=== PATIENT | male | born 1970 | race Caucasian/White ===

== ENCOUNTER 2017-09-08 23:41 | Emergency (ER) | payer MEDICAID ==
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
[2017-09-09 00:02] VITALS: O2SAT 100
--- NOTE | 2017-09-09 00:10 | RAD ---
EXAM: Chest,1 View CLINICAL INDICATION: 47-year-old male with shortness of breath. TECHNIQUE: Single view, AP portable chest was obtained. COMPARISON: None. FINDINGS: Examination findings are limited secondary to patient rotation and positioning. Mediastinal cardiac contour appears to be within normal limits, within the limitations of patient rotation and positioning. Tracheostomy tube terminates at the level of the thoracic inlet. The lungs are grossly clear without discrete focal opacity, pleural effusion or pneumothorax. The visualized bones reveal severe dextrorotoscoliosis of the thoracic spine with stabilization hardware. IMPRESSION: No acute cardiopulmonary abnormalities. Electronically signed by: Li Ro MD 09/09/2017 12:08 AM WOODS SUPERINTENDENT Workstation: [id number]
[2017-09-09 03:12] VITALS: BP 127/87; TEMP 98.2
== END 2017-09-09 03:11 ==
LOC: ER 23:41
DX: J96.10 Chronic respiratory failure, unspecified whether with hypoxia or hypercapnia (principal); J95.03 Malfunction of tracheostomy stoma; Z87.820 Personal history of traumatic brain injury; Z93.1 Gastrostomy status

== ENCOUNTER 2017-09-26 08:53 | Emergency (ER) | payer MEDICAID ==
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
[2017-09-26] MEDS ORDERED: LORazepam 0.5 MG TAB PO ONE (09:39)
--- NOTE | 2017-09-26 09:47 | RAD ---
EXAM: Chest,1 View CLINICAL INDICATION: 47-year-old male with shortness of breath. TECHNIQUE: Single view, AP portable chest was obtained. COMPARISON: September 08, 2017 FINDINGS: Examination findings are limited secondary to patient rotation and positioning. Mediastinal cardiac contour appears to be within normal limits, within the limitations of patient rotation and positioning. Tracheostomy tube terminates at the level of the thoracic inlet. The lungs are grossly clear without discrete focal opacity, pleural effusion or pneumothorax. The visualized bones reveal severe dextrorotoscoliosis of the thoracic spine with stabilization hardware. IMPRESSION: No acute cardiopulmonary abnormalities. Electronically signed by: Jesus Mann MD 09/26/2017 9:45 AM SAFETY SUPERVISOR
[2017-09-26 12:18] VITALS: O2SAT 100
[2017-09-26 12:28] VITALS: BP 138/90; TEMP 98.1
== END 2017-09-26 12:40 ==
LOC: ER 08:53
DX: J95.03 Malfunction of tracheostomy stoma (principal); J96.12 Chronic respiratory failure with hypercapnia; Z99.11 Dependence on respirator [ventilator] status; I10 Essential (primary) hypertension; Z79.899 Other long term (current) drug therapy
CPT/HCPCS: 36415; 71010; 80053; 85025; 85379; 94002; J2060

== ENCOUNTER 2017-10-30 01:23 | Emergency (ER) | payer MEDICAID ==
--- NOTE | 2017-10-30 02:27 | ED.PDOC ---
History of Present Illness - General Chief Complaint: Respiratory Problem Stated Complaint: difficulty breathing Time Seen by Provider: 10/30/17 01:55 Source: RN notes reviewed, EMS notes reviewed Exam Limitations: physical impairment, other - ventilator dependent - History of Present Illness Initial Comments: Melida Iraheta 47 y/o ventilator dependent due to anoxic brain damage resident at [facility] brought by ems with elevated heart rate ,low grade fever and etco2 of 150 at [facility] .Was started on Amoxicillin for possible lung infection by his Md at [facility]. Timing/Duration: 24 hours, changing over time, intermittent Severity: moderate Improving Factors: nothing Worsening Factors: nothing Associated Symptoms: other - see hpi Allergies/Adverse Reactions: Allergies NO KNOWN ALLERGY Allergy (Verified 09/26/17 09:04) Home Medications: Ambulatory Orders Acetaminophen [Tylenol] 650 mg PO Q6H PRN 09/26/17 Atropine Drops 2 drop SL Q6H PRN 09/26/17 Balsam [place] Oil [Venelex] 1 applic TOP DAILY 09/26/17 Bisacodyl [The Magic Bullet] 10 mg [place] DAILY PRN 09/26/17 Budesonide (Inhalation) [Budesonide] 0.5 mg INH BID 09/26/17 Chlorhexidine Mouth Rinse [Peridex] 15 ml MT BID PRN 09/26/17 Fluticasone Propionate (Nasal) [Flonase Allergy Relief] 50 mcg BNAS DAILY Ipratropium [place] Nebs [Atrovent NEBS] 0.5 mg INH Q6H 09/26/17 Levalbuterol Nebs [Xopenex NEBS] 3 ml INH Q4H PRN 09/26/17 Levalbuterol Nebs [Xopenex NEBS] 3 ml INH Q6H 09/26/17 Lorazepam [Ativan] 0.5 mg PO Q8H PRN 09/26/17 Pantoprazole Suspension [Protonix] 40 mg PO DAILY 09/26/17 RX: Amantadine HCl 100 mg PO BID 09/26/17 RX: Baclofen 10 mg PO DAILY 09/26/17 RX: Loratadine 10 mg PO DAILY 09/26/17 RX: Methylphenidate HCl 10 mg PO BID 09/26/17 RX: Promethazine HCl 25 mg PO Q6H PRN 09/26/17 RX: Trazodone HCl 50 mg PO BEDTIME 09/26/17 levETIRAcetam SUSPENSION [Keppra] 500 mg PO BID 09/26/17 Review of Systems - Review of Systems Unable to Obtain Due To: condition, clinical condition, other - ventilator dependent;non verbal,tracheostomy,vegetative state Past Medical History (General) - Patient Medical History Hx Seizures: No Hx Stroke: No Hx Dementia: No Hx Asthma: No Hx of COPD: No Hx Cardiac Disorders: No Hx Congestive Heart Failure: No Hx Pacemaker: No Hx Hypertension: Yes Hx Thyroid Disease: No Hx Diabetes: No Hx Gastroesophageal Reflux: No Hx Renal Disease: No Hx Cancer: No Hx of HIV: No Hx Hepatitis C: No Hx MRSA: No Surgical History: other - peg,tracheostomy,metal rods-thoracic spine - Vaccination History Hx Tetanus, Diphtheria Vaccination: Yes Hx Influenza Vaccination: - unknown Hx Pneumococcal Vaccination: - unknown - Social History Hx Tobacco Use: No - Activities of Daily Living Jail/Assisted Living (if applicable):: [facility] Family Medical History - Family History Mother Family History: Unknown Living Status: Unknown Physical Exam - Physical Exam General Appearance: Other - vegetative state Ears, Nose, Throat: normal pharynx, other - moist oral mucosa Neck: other - contracture deformity Respiratory: other - coarse breath sounds,on vent Cardiovascular/Chest: normal peripheral pulses, regular rate, rhythm, no gallop , no murmur Peripheral Pulses: radial,right: 2+, radial,left: 2+ Gastrointestinal/Abdominal: normal bowel sounds, soft, no organomegaly Extremity: other - contracture deformities upper and lower extremities Neurologic: other - persistent vegetative state with occasional roliing of both eyeballs Skin Exam: normal color, warm/dry Progress - Progress Progress: 10/30/17 03:31 Vital Signs - 24 hr 10/30/17 10/30/17 10/30/17 01:45 01:57 02:00 Temperature 99.8 F H Pulse Rate [ 71 left] Respiratory 16 18 18 Rate Respiratory 18 Rate [Volume Control Data] Blood Pressure 92/63 [right] O2 Sat by Pulse 100 99 Oximetry 10/30/17 10/30/17 02:33 03:21 Temperature Pulse Rate [ 115 H 72 left] Respiratory 18 18 Rate Respiratory Rate [Volume Control Data] Blood Pressure 97/65 160/96 [right] O2 Sat by Pulse 99 99 Oximetry - Results/Orders Results/Orders: Laboratory Tests 10/30/17 10/30/17 10/30/17 01:34 01:50 01:50 WBC 11.3 H RBC 4.85 Hgb 13.4 L Hct 41.9 L MCV 86.5 MCH 27.6 MCHC 31.8 L RDW 14.9 H Plt Count 212 MPV 9.8 Absolute Neuts (auto) 10.00 H Absolute Lymphs (auto) 0.40 L Absolute Monos (auto) 0.90 H Absolute Eos (auto) 0.00 Absolute Basos (auto) 0.00 Neutrophils % 88.7 H Lymphocytes % 3.1 L Monocytes % 7.8 Eosinophils % 0.3 L Basophils % 0.1 pCO2 59 H pO2 179 H* HCO3 42.4 ABG pH 7.470 H ABG O2 Saturation 100.5 H ABG Base Excess 16.0 ABG Deoxyhemoglobin -0.5 L Oxyhemoglobin % 98.9 H Carboxyhemoglobin % 0.9 Methemoglobin % Sat 0.7 Calc Total Hemoglobin 12.0 L Sodium 137 Potassium 5.4 H Chloride 86 L Carbon Dioxide 42 H Anion Gap 14.4 BUN 12 Creatinine 0.64 BUN/Creatinine Ratio 18.8 Random Glucose 195 H Serum Osmolality 278.9 Lactic Acid Calcium 9.8 Total Bilirubin 0.3 Direct Bilirubin 0.1 AST 18 ALT 29 Alkaline Phosphatase 107 Troponin I Serum Total Protein 8.8 H Albumin 3.6 Globulin 5.2 H Albumin/Globulin Ratio 0.7 L Urine Color Urine Appearance Urine pH Ur Specific [place] Urine Protein Urine Glucose (UA) Urine Ketones Urine Blood Urine Nitrite Urine Bilirubin Urine Urobilinogen Ur Leukocyte Esterase Urine RBC Urine WBC Ur Epithelial Cells Urine Bacteria 10/30/17 10/30/17 10/30/17 01:50 01:56 02:30 WBC RBC Hgb Hct MCV MCH MCHC RDW Plt Count MPV Absolute Neuts (auto) Absolute Lymphs (auto) Absolute Monos (auto) Absolute Eos (auto) Absolute Basos (auto) Neutrophils % Lymphocytes % Monocytes % Eosinophils % Basophils % pCO2 pO2 HCO3 ABG pH ABG O2 Saturation ABG Base Excess ABG Deoxyhemoglobin Oxyhemoglobin % Carboxyhemoglobin % Methemoglobin % Sat Calc Total Hemoglobin Sodium Potassium Chloride Carbon Dioxide Anion Gap BUN Creatinine BUN/Creatinine Ratio Random Glucose Serum Osmolality Lactic Acid 2.3 H Calcium Total Bilirubin Direct Bilirubin AST ALT Alkaline Phosphatase Troponin I < 0.02 Serum Total Protein Albumin Globulin Albumin/Globulin Ratio Urine Color Yellow Urine Appearance Sl cloudy Urine pH 5.5 Ur Specific [place] >= 1.030 Urine Protein 100 H Urine Glucose (UA) Negative Urine Ketones Negative Urine Blood Moderate H Urine Nitrite Negative Urine Bilirubin Negative Urine Urobilinogen 0.2 Ur Leukocyte Esterase Negative Urine RBC 5-10 H Urine WBC 1-3 Ur Epithelial Cells 0 Urine Bacteria 2+ H Patients slight elevation of his lactic acid is from chronic respiratory failure with continued ventilatory support,also he is on feeding tube. Work up that were done did not show acute infectious processes-CBC,URINALYSIS,Chest X- ray and abdominal CT.He was intermittently suctioned on his tracheostomy tubes to clear up thickened secretion by the respiratory therapist. - EKG/XRAY/CT EKG: Sinus, Tachy Comments: HR-118;early repolarization XRAY: chest - no acute abnormalities CT Ordered: Yes - abd/p-no acute abnormalities ,non obstructing kidney stone bilateral Departure - Departure Clinical Impression: Abdominal distention, Ventilator dependent, Anoxic brain damage, not elsewhere classified Respiratory failure Qualifiers: Chronicity: acute on chronic Respiratory failure complication: unspecified whether with hypoxia or hypercapnia Qualified Code(s): J96.20 - Acute and chronic respiratory failure, unspecified whether with hypoxia or hypercapnia Time of Disposition: 05:39 Disposition: Discharge to SNF Condition: Poor Departure Forms: Patient Portal Self Enrollment Referrals: DAYANA SANTANA [Primary Care Provider] - 1-2 Weeks Home Medications: Ambulatory Orders Acetaminophen [Tylenol] 650 mg PO Q6H PRN 09/26/17 Atropine Drops 2 drop SL Q6H PRN 09/26/17 Balsam [place] Oil [Venelex] 1 applic TOP DAILY 09/26/17 Bisacodyl [The Magic Bullet] 10 mg [place] DAILY PRN 09/26/17 Budesonide (Inhalation) [Budesonide] 0.5 mg INH BID 09/26/17 Chlorhexidine Mouth Rinse [Peridex] 15 ml [place] BID PRN 09/26/17 Fluticasone Propionate (Nasal) [Flonase Allergy Relief] 50 mcg BNAS DAILY Ipratropium [place] Nebs [Atrovent NEBS] 0.5 mg INH Q6H 09/26/17 Levalbuterol Nebs [Xopenex NEBS] 3 ml INH Q4H PRN 09/26/17 Levalbuterol Nebs [Xopenex NEBS] 3 ml INH Q6H 09/26/17 Lorazepam [Ativan] 0.5 mg PO Q8H PRN 09/26/17 Pantoprazole Suspension [Protonix] 40 mg PO DAILY 09/26/17 RX: Amantadine HCl 100 mg PO BID 09/26/17 RX: Baclofen 10 mg PO DAILY 09/26/17 RX: Loratadine 10 mg PO DAILY 09/26/17 RX: Methylphenidate HCl 10 mg PO BID 09/26/17 RX: Promethazine HCl 25 mg PO Q6H PRN 09/26/17 RX: Trazodone HCl 50 mg PO BEDTIME 09/26/17 levETIRAcetam SUSPENSION [Keppra] 500 mg PO BID 09/26/17 Additional Instructions: Continue with all current medications;Follow up with primary Md in am
--- NOTE | 2017-10-30 02:41 | RAD ---
Procedure: XR CHEST 1 VIEW Exam Date: 10/30/2017 Ordering Provider: Pankaj Gramajo Clinical Indication: difficulty breathing Comparison: 09/26/2017 Findings: Tracheostomy tube in appropriate position. Cardiomediastinal silhouette: Cardiac size is magnified by technique. Pulmonary vasculature : Unremarkable Aortic contour: Unremarkable Focal lung consolidation: None Pleural effusion: None Pneumothorax: None Bones and soft tissues: Nonacute. Postsurgical changes in the scoliotic spine. Impression: 1. No acute abnormalities in the chest. Electronically signed by: Jerry Reed MD 10/30/2017 2:41 AM VENEER SORTER
[2017-10-30] MEDS ORDERED: SODIUM CHLORIDE 0.9% 1000ML 1,000 ML IVS ONE (03:03)
[2017-10-30] MEDS ORDERED: SOD POLYSTYRENE SULFONATE 15 GM/60 ML BTTL GT ONE (03:35)
[2017-10-30] MEDS ORDERED: ONDANSETRON INJ 4 MG/2 ML VIAL ONE (03:53)
[2017-10-30 04:11] VITALS: O2SAT 100
[2017-10-30] MEDS ORDERED: ONDANSETRON INJ 4 MG/2 ML VIAL IV ONE (04:14)
--- NOTE | 2017-10-30 05:10 | CT ---
EXAM DESCRIPTION: CT ABDOMEN AND PELVIS WITHOUT CONTRAST CLINICAL HISTORY: abdominal distention COMPARISON: None Available. TECHNIQUE: CT of the abdomen and pelvis without IV contrast. FINDINGS: Abdomen: The liver has normal size and density. No calcified gallstones. The spleen, pancreas, and adrenal glands demonstrate no definite abnormalities by noncontrast CT criteria. Bilateral nonobstructing renal calculi, the largest on the right measuring 3-4 mm. No definite hydronephrosis or obstructing calculus. The aorta and IVC have normal caliber and position. No free intraperitoneal air. G-tube in place. Pelvis: Prostate is not enlarged. Urinary bladder is unremarkable. No free pelvic fluid or lymphadenopathy. No dilated loops of large or small bowel. Normal appendix. Mild bibasilar atelectasis. Postoperative change of the thoracic spine. DLP: 638.52 mGy-cm IMPRESSION: 1. No acute inflammatory or obstructive abnormality identified. 2. Punctate nonobstructing bilateral renal calculi. This exam was performed according to our departmental dose-optimization program, which includes automated exposure control, adjustment of the mA and/or kV according to patient size and/or use of iterative reconstruction technique. Electronically signed by: Mohan Holloway 10/30/2017 5:09 AM CREDIT RATING CHECKER
[2017-10-30 06:16] VITALS: BP 120/71; TEMP 100.2
== END 2017-10-30 06:16 ==
LOC: ER 01:23
DX: J96.20 Acute and chronic respiratory failure, unspecified whether with hypoxia or hypercapnia (principal); R14.0 Abdominal distension (gaseous); G93.1 Anoxic brain damage, not elsewhere classified; Z99.11 Dependence on respirator [ventilator] status; Z93.1 Gastrostomy status; R79.89 Other specified abnormal findings of blood chemistry; I10 Essential (primary) hypertension; Z79.899 Other long term (current) drug therapy
CPT/HCPCS: 36415; 36600; 71010; 74176; 80053; 81001; 82248; 82803; 82805; 83605; 84484; 85025; 87502; 93005; 94002; 94003; 94760; 94770; J2405; J7030

== ENCOUNTER 2017-12-27 13:16 | Emergency (ER) | payer MEDICAID ==
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
--- NOTE | 2017-12-27 14:17 | RAD ---
EXAM DESCRIPTION: Chest,1 View CLINICAL HISTORY: R/O PNEUMONIA COMPARISON: None FINDINGS: There is a large amount of subcutaneous emphysema. There is a right-sided pneumothorax of approximately 40-50%. There is a tracheostomy tube. Deep left sulci sign raises a suspicion for left-sided pneumothorax. An upright view of the chest could be helpful for further evaluation. Patient is status post thoracolumbar surgery. There is scoliosis. IMPRESSION: Right-sided pneumothorax. Large amount of subcutaneous emphysema. Questionable left deep sulci sign, a left-sided pneumothorax cannot be completely excluded. An upright view recommended for further evaluation. Electronically signed by: Eddie Carrillo MD 12/27/2017 2:16 PM DONATION WORKER
--- NOTE | 2017-12-27 15:09 | CT ---
EXAM DESCRIPTION: Chest w/o Contrast CLINICAL HISTORY: facial and chest swelling ,trach dislodged COMPARISON: None Available. TECHNIQUE: Contiguous axial images of the chest were obtained from the thoracic inlet up to the upper abdomen followed by reconstruction images. This exam was performed according to our departmental dose-optimization program, which includes automated exposure control, adjustment of the mA and/or kV according to patient size and/or use of iterative reconstruction technique. FINDINGS: There is a large amount of subcutaneous emphysema. There is a large right-sided pneumothorax. There is a pneumomediastinum. There is a tracheostomy tube. The tracheostomy tube tip is contacting the posterior wall of the trachea. Small air collection inferior to the left lung and anterior to the left lung compatible with a small left-sided pneumothorax. There is scoliosis and evidence of prior thoracolumbar surgery. There is no pleural fluid collection. There are nonobstructive stones within the kidneys. IMPRESSION: Large right-sided pneumothorax with extensive subcutaneous emphysema at the chest wall extending into the neck. Large pneumomediastinum. Small left-sided pneumothorax. The tracheostomy tip is contacting the posterior wall of the trachea. Findings were communicated to the referring physician at the time of dictation. Electronically signed by: Eddie Carrillo MD 12/27/2017 3:08 PM ART MUSEUM AIDE Workstation: [employer]
--- NOTE | 2017-12-27 15:10 | RAD ---
EXAM DESCRIPTION: Chest,1 View CLINICAL HISTORY: CHEST TUBE PLACEMENT COMPARISON: Same day earlier time IMPRESSION: There has been interval placement of a right chest tube with significant decreased in size of the right-sided pneumothorax. Subcutaneous emphysema again noted. There is a large pneumomediastinum. Electronically signed by: Eddie Carrillo MD 12/27/2017 3:09 PM YARD MOTOR OPERATOR
[2017-12-27 17:05] VITALS: BP 95/56; TEMP 97.8; O2SAT 97
== END 2017-12-27 16:34 | disposition short-term general hospital (02) ==
LOC: ER 13:16
DX: J93.9 Pneumothorax, unspecified (principal); G93.1 Anoxic brain damage, not elsewhere classified; Z99.11 Dependence on respirator [ventilator] status; I10 Essential (primary) hypertension; M62.50 Muscle wasting and atrophy, not elsewhere classified, unspecified site

== ENCOUNTER 2018-01-06 18:26 | Emergency (ER) | payer MEDICAID ==
--- NOTE | 2018-01-06 19:03 | RAD ---
EXAM DESCRIPTION: Chest,1 View CLINICAL HISTORY: resp distress COMPARISON: 12/27/2017 FINDINGS: Extensive ectopic air in the soft tissues has resolved. Right chest tube is removed. No pneumothorax is seen. Tracheostomy is again seen. Spinal hardware appears unchanged. There is probable consolidation in the left midlung and at the right lung base. No significant pleural effusion. Heart size is stable. IMPRESSION: Bilateral consolidations. Electronically signed by: Mervin Montemayor 01/06/2018 7:02 PM [facility]
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
[2018-01-06] MEDS ORDERED: MEROPENEM 1 GM in SODIUM CHL 0.9% 50ML MIN-BAG+ 50 ML IVPB ONE (20:06)
[2018-01-06] MEDS ORDERED: SODIUM CHL 0.9% 50ML MIN-BAG+ 50 ML IVPB ONE (20:15)
[2018-01-06] MEDS ORDERED: MEROPENEM 1 GM VIAL IVPB ONE (20:15)
--- NOTE | 2018-01-06 20:25 | RAD ---
EXAM DESCRIPTION: Chest,1 View CLINICAL HISTORY: 47 years Male, sob COMPARISON: Earlier in the same day at 6:49 PM. FINDINGS: There is no gross change in cardiopulmonary status compared to the last exam, considering technical differences. Note is again made of right basilar infiltrative change and faintly increased density in the left perihilar region. No gross pneumothorax is identified on this portable semiupright film. The tracheostomy tube remains in place. Postoperative changes are again noted. There is some gaseous distention of the stomach. IMPRESSION: Essentially stable appearance of the chest compared to last exam. Electronically signed by: Kd Chisholm MD 01/06/2018 8:24 PM [facility]
[2018-01-06 23:54] VITALS: O2SAT 100
[2018-01-07 01:15] VITALS: BP 103/64; TEMP 99.8
== END 2018-01-07 01:35 | disposition short-term general hospital (02) ==
LOC: ER 18:26
DX: J18.9 Pneumonia, unspecified organism (principal); J96.10 Chronic respiratory failure, unspecified whether with hypoxia or hypercapnia; Z99.11 Dependence on respirator [ventilator] status; G93.1 Anoxic brain damage, not elsewhere classified; I10 Essential (primary) hypertension
CPT/HCPCS: 36415; 36600; 71045; 80053; 82803; 82805; 83605; 85025; 87040; 94002; J2060; J2185; J7050